=== PATIENT | female | born 1985 | race African-American/Black ===

== ENCOUNTER 2023-03-18 08:28 | Emergency (ER) | payer MEDICAID ==
[~2023-03-18] VITALS: Ht 162.6 cm; Wt 69.9 kg
[2023-03-18 08:31] VITALS: BP 104/66
[2023-03-18] MEDS ORDERED: PNV,1TAB PO (08:51)
--- NOTE | 2023-03-18 09:41 | NUR ---
Patient discharged with v/s stable. Written and verbal after care instructions given and explained. Patient alert, oriented and verbalized understanding of instructions. Ambulatory with steady gait. All questions addressed prior to discharge. ID band removed. Patient advised to follow up with PMD. Rx of M- PLUS TABLET given. Patient educated on indication of medication including possible reaction and side effects. Opportunity to ask questions provided and answered.
--- NOTE | 2023-03-18 09:42 | NUR ---
STATES OK TO DC WITHOUT URINE PREG.
== END 2023-03-18 09:40 | disposition home or self-care (01) ==
LOC: MED 08:28
DX: O26.891 Other specified pregnancy related conditions, first trimester (principal); Z3A.13 13 weeks gestation of pregnancy; Z79.899 Other long term (current) drug therapy
CPT/HCPCS: 99284